=== PATIENT | male | born 1960 | race Caucasian/White ===

== ENCOUNTER 2019-05-05 08:03 | Emergency (ER) | payer OTHER ==
[~2019-05-05] VITALS: Ht 170.2 cm; Wt 99.8 kg
--- OUTSIDE RECORDS SUMMARY | 2019-05-05 08:06 | XMS REPORT ---
Author Author [facility] Address Unknown Phone Unavailable Care Team Providers Care Gas Line Servicer Name Role Phone ARIANNA, TIMBETTY Unavailable Unavailable KALPANA OLIVA Unavailable Unavailable Problems This patient has no known problems. Allergies, Adverse Reactions, Alerts This patient has no known allergies or adverse reactions. Medications This patient has no known medications. Results Test Description Test Time Test Comments Text Results Atomic Results Result Comments TISSUE EXAM 2017-10-11 10:11:00 Surgical Pathology Report Case: [id number] Authorizing Provider: Marcial De Los Santos Collected: 10/08/2017 1039 Ord ering Location: [address] Received: 10/09/2017 0852 Service Pathologist: Ximena Acevedo MD Specimen: Biopsy, Terminal Ileum, erythema SMALL INTESTINE, TERMINAL ILEUM, BIOPSY: - SMALL INTESTINAL MUCOSA WITH FOCAL MUCOSAL EROSION, OTHERWISE NO SIGNIFICANT PATHOLOGIC ALTERATION Signing Pathologist Direct Phone Line: [phone] signed by Ximena Acevedo MD on 10/11/2017 at 10:11 [id number] mass Terminal ileum erythema biopsy Received in formalin labeled "biopsy, terminal ileum", description "erythema" are three fragments measuring 0.6 x 0.5 x 0.1 cm in aggregate. The specimen is entirely submitted in A1. DB/ew Performed. POCT-GLUCOSE METER 2017-10-08 11:23:00 POC-GLUCOSE METER (BEAKER) (test yljh=4759) 135 mg/dL 70-110 TESTED AT [place] [id number] [facility] [address] POCT-GLUCOSE [id number] 05:32:00* Test Item Value Reference Range Comments POC-GLUCOSE METER (BEAKER) (test tncg=9685) 118 mg/dL 70-110 TESTED AT [address] [address] POCT-GLUCOSE [id number] 23:01:00* Test Item Value Reference Range Comments POC-GLUCOSE METER (BEAKER) (test cckl=2077) 116 mg/dL 70-110 TESTED AT [address] [address] POCT-GLUCOSE [id number] 17:48:00* Test Item Value Reference Range Comments POC-GLUCOSE METER (BEAKER) (test mvow=4506) 146 mg/dL 70-110 TESTED AT [address] [address] POCT-GLUCOSE [id number] 12:29:00* Test Item Value Reference Range Comments POC-GLUCOSE METER (BEAKER) (test ursf=1083) 152 mg/dL 70-110 TESTED AT [address] [address] POCT-GLUCOSE [id number] 08:01:00* Test Item Value Reference Range Comments POC-GLUCOSE METER (BEAKER) (test mkvg=7700) 171 mg/dL 70-110 TESTED AT [address] [address] POCT-GLUCOSE [id number] 22:12:00* Test Item Value Reference Range Comments POC-GLUCOSE METER (BEAKER) (test dypm=0002) 264 mg/dL 70-110 TESTED AT [address] [address] POCT-GLUCOSE [id number] 18:01:00* Test Item Value Reference Range Comments POC-GLUCOSE METER (BEAKER) (test uobu=9571) 153 mg/dL 70-110 TESTED AT [address] [address] POCT-GLUCOSE [id number] 12:26:00* Test Item Value Reference Range Comments POC-GLUCOSE METER (BEAKER) (test uljb=3575) 311 mg/dL 70-110 TESTED AT [address] [address] POCT-GLUCOSE [id number] 09:02:00* Test Item Value Reference Range Comments POC-GLUCOSE METER (BEAKER) (test nuoi=8380) 129 mg/dL 70-110 TESTED AT [address] [address] [id number] 04:44:00* Test Item Value Reference Range Comments PHOSPHORUS (BEAKER) (test zxln=279) 4.7 mg/dL 2.3-4.7 [id number] 04:44:00* Test Item Value Reference Range Comments MAGNESIUM (BEAKER) (test jsaf=245) 1.9 mg/dL 1.6-2.6 BASIC METABOLIC [id number] 04:44:00* Test Item Value Reference Range Comments SODIUM (BEAKER) (test wota=199) 141 meq/L 136-145 POTASSIUM (BEAKER) (test dayj=865) 3.6 meq/L 3.5-5.1 CHLORIDE (BEAKER) (test ithy=581) 104 meq/L 98-107 CO2 (BEAKER) (test jvid=401) 26 meq/L 22-29 BLOOD UREA NITROGEN (BEAKER) (test tmoc=880) 10 mg/dL 7-21 CREATININE (BEAKER) (test gjbo=740) 0.79 mg/dL 0.57-1.25 GLUCOSE RANDOM (BEAKER) (test qncs=327) 124 mg/dL 70-105 CALCIUM (BEAKER) (test trrv=480) 9.4 mg/dL 8.4-10.2 EGFR (BEAKER) (test xlwf=2885) 101 mL/min/1.73 sq m ESTIMATED GFR IS NOT ACCURATE CREATININE CLEARANCE IN PREDICTING GLOMERULAR FILTRATION RATE. ESTIMATED GFR IS NOT APPLICABLE FOR DIALYSIS PATIENTS. HEPATIC FUNCTION [id number] 04:44:00* Test Item Value Reference Range Comments TOTAL PROTEIN (BEAKER) (test opcc=751) 6.6 gm/dL 6.0-8.3 ALBUMIN (BEAKER) (test nzag=5608) 3.5 g/dL 3.5-5.0 BILIRUBIN TOTAL (BEAKER) (test dtxi=038) 0.7 mg/dL 0.2-1.2 BILIRUBIN DIRECT (BEAKER) (test xwgf=229) 0.3 mg/dL 0.1-0.5 ALKALINE PHOSPHATASE (BEAKER) (test wtws=243) 50 U/L 40-150 AST (SGOT) (BEAKER) (test taoe=697) 16 U/L 5-34 ALT (SGPT) (BEAKER) (test rkag=260) 19 U/L 6-55 CBC W/PLT COUNT & AUTO [id number] 04:06:00* Test Item Value Reference Range Comments WHITE BLOOD CELL COUNT (BEAKER) (test clql=149) 6.1 K/ L 3.5-10.5 RED BLOOD CELL COUNT (BEAKER) (test pate=849) 4.11 M/ L 4.63-6.08 HEMOGLOBIN (BEAKER) (test vlnl=744) 11.7 GM/DL 13.7-17.5 HEMATOCRIT (BEAKER) (test fhny=299) 34.8 % 40.1-51.0 MEAN CORPUSCULAR VOLUME (BEAKER) (test fkco=055) 84.7 fL 79.0-92.2 MEAN CORPUSCULAR HEMOGLOBIN (BEAKER) (test xrsm=536) 28.5 pg 25.7-32.2 MEAN CORPUSCULAR HEMOGLOBIN CONC (BEAKER) (test thsv=755) 33.6 GM/DL 32.3-36.5 RED CELL DISTRIBUTION WIDTH (BEAKER) (test xwni=487) 12.6 % 11.6-14.4 PLATELET COUNT (BEAKER) (test dgsd=194) 242 K/CU MM 150-450 MEAN PLATELET VOLUME (BEAKER) (test mqvc=602) 9.8 fL 9.4-12.4 NUCLEATED RED BLOOD CELLS (BEAKER) (test trri=633) 0 /100 WBC 0-0 NEUTROPHILS RELATIVE PERCENT (BEAKER) (test uubh=321) 54 % LYMPHOCYTES RELATIVE PERCENT (BEAKER) (test dqkv=063) 28 % MONOCYTES RELATIVE PERCENT (BEAKER) (test ehed=111) 9 % EOSINOPHILS RELATIVE PERCENT (BEAKER) (test nvqb=615) 8 % BASOPHILS RELATIVE PERCENT (BEAKER) (test ymgq=704) 1 % NEUTROPHILS ABSOLUTE COUNT (BEAKER) (test ehcu=957) 3.32 K/ L 1.78-5.38 LYMPHOCYTES ABSOLUTE COUNT (BEAKER) (test vomw=332) 1.73 K/ L 1.32-3.57 MONOCYTES ABSOLUTE COUNT (BEAKER) (test avsn=039) 0.57 K/ L 0.30-0.82 EOSINOPHILS ABSOLUTE COUNT (BEAKER) (test ohbs=418) 0.47 K/ L 0.04-0.54 BASOPHILS ABSOLUTE COUNT (BEAKER) (test zatz=135) 0.04 K/ L 0.01-0.08 IMMATURE GRANULOCYTES-RELATIVE PERCENT (BEAKER) (test hgvu=0965) 0 % 0-1 POCT-GLUCOSE [id number] 21:46:00* Test Item Value Reference Range Comments POC-GLUCOSE METER (BEAKER) (test wixt=9971) 212 mg/dL 70-[address] [facility] [address] [facility] [address] POCT-GLUCOSE [id number] 17:09:00* Test Item Value Reference Range Comments POC-GLUCOSE METER (BEAKER) (test pfkc=8414) 128 mg/dL 70-110 TESTED AT [address] [address] RAD, ABDOMEN/KUB, 1 VIEW [id number] 15:49:00Reason for exam:->assess abdominal distentionShould this be performed at the bedside?->YesFINAL REPORT Abdomen two views supine 10/05/2017 3:48 PM CLINICAL INDICATION: assess abdominal distention COMPARISON: None available IMPRESSION: There is no radiographic evidence for bowel obstruction. There is no high-grade ileus or colonic fecal burden. No abnormal calcifications are seen in the region of the gallbladder or kidneys. There are postsurgical changes in the right lower quadrant. The lung bases are well aerated. There are no acute-appearing skeletal abnormalities. Signed: Ramone Oneil Verified Date/Time: 10/05/2017 15:49:36 Reading Location: [address] Consult Reading Room -GLUCOSE METER 2017-10-05 11:28:00* Test Item Value Reference Range Comments POC-GLUCOSE METER (BEAKER) (test nvot=8526) 119 mg/dL 70-110 TESTED AT [place] [id number] [facility] [address] POCT-GLUCOSE [id number] 07:48:00* Test Item Value Reference Range Comments POC-GLUCOSE METER (BEAKER) (test tqgu=1914) 103 mg/dL 70-110 TESTED AT [address] [address] [id number] 06:40:00* Test Item Value Reference Range Comments PHOSPHORUS (BEAKER) (test mtxd=056) 3.3 mg/dL 2.3-4.7 [id number] 06:40:00* Test Item Value Reference Range Comments MAGNESIUM (BEAKER) (test tlqg=650) 1.9 mg/dL 1.6-2.6 BASIC METABOLIC [id number] 06:40:00* Test Item Value Reference Range Comments SODIUM (BEAKER) (test tqgg=697) 138 meq/L 136-145 POTASSIUM (BEAKER) (test oidt=592) 3.4 meq/L 3.5-5.1 CHLORIDE (BEAKER) (test bxge=102) 105 meq/L 98-107 CO2 (BEAKER) (test rznv=324) 26 meq/L 22-29 BLOOD UREA NITROGEN (BEAKER) (test xxql=417) 8 mg/dL 7-21 CREATININE (BEAKER) (test zizo=918) 0.73 mg/dL 0.57-1.25 GLUCOSE RANDOM (BEAKER) (test tfhn=949) 111 mg/dL 70-105 CALCIUM (BEAKER) (test ornf=429) 9.3 mg/dL 8.4-10.2 EGFR (BEAKER) (test miuk=4764) 110 mL/min/1.73 sq m ESTIMATED GFR IS NOT ACCURATE CREATININE CLEARANCE IN PREDICTING GLOMERULAR FILTRATION RATE. ESTIMATED GFR IS NOT APPLICABLE FOR DIALYSIS PATIENTS. HEPATIC FUNCTION [id number] 06:40:00* Test Item Value Reference Range Comments TOTAL PROTEIN (BEAKER) (test wkpn=733) 6.0 gm/dL 6.0-8.3 ALBUMIN (BEAKER) (test mirr=2189) 3.6 g/dL 3.5-5.0 BILIRUBIN TOTAL (BEAKER) (test kpnh=609) 0.9 mg/dL 0.2-1.2 BILIRUBIN DIRECT (BEAKER) (test osai=956) 0.4 mg/dL 0.1-0.5 ALKALINE PHOSPHATASE (BEAKER) (test mhnl=503) 46 U/L 40-150 AST (SGOT) (BEAKER) (test omso=086) 11 U/L 5-34 ALT (SGPT) (BEAKER) (test xbrg=504) 14 U/L 6-55 CBC W/PLT COUNT & AUTO [id number] 06:07:00* Test Item Value Reference Range Comments WHITE BLOOD CELL COUNT (BEAKER) (test qiov=359) 7.5 K/ L 3.5-10.5 RED BLOOD CELL COUNT (BEAKER) (test lghb=618) 4.05 M/ L 4.63-6.08 HEMOGLOBIN (BEAKER) (test qfmh=297) 11.3 GM/DL 13.7-17.5 HEMATOCRIT (BEAKER) (test yaae=040) 34.7 % 40.1-51.0 MEAN CORPUSCULAR VOLUME (BEAKER) (test jziy=592) 85.7 fL 79.0-92.2 MEAN CORPUSCULAR HEMOGLOBIN (BEAKER) (test zumg=508) 27.9 pg 25.7-32.2 MEAN CORPUSCULAR HEMOGLOBIN CONC (BEAKER) (test gdij=943) 32.6 GM/DL 32.3-36.5 RED CELL DISTRIBUTION WIDTH (BEAKER) (test zfzy=348) 12.9 % 11.6-14.4 PLATELET COUNT (BEAKER) (test catb=846) 234 K/CU MM 150-450 MEAN PLATELET VOLUME (BEAKER) (test tmac=014) 10.2 fL 9.4-12.4 NUCLEATED RED BLOOD CELLS (BEAKER) (test tdun=534) 0 /100 WBC 0-0 NEUTROPHILS RELATIVE PERCENT (BEAKER) (test eggs=064) 56 % LYMPHOCYTES RELATIVE PERCENT (BEAKER) (test dohc=830) 27 % MONOCYTES RELATIVE PERCENT (BEAKER) (test qdcn=334) 10 % EOSINOPHILS RELATIVE PERCENT (BEAKER) (test oukk=806) 7 % BASOPHILS RELATIVE PERCENT (BEAKER) (test papy=609) 1 % NEUTROPHILS ABSOLUTE COUNT (BEAKER) (test wwas=569) 4.13 K/ L 1.78-5.38 LYMPHOCYTES ABSOLUTE COUNT (BEAKER) (test lzym=976) 1.98 K/ L 1.32-3.57 MONOCYTES ABSOLUTE COUNT (BEAKER) (test stsg=775) 0.72 K/ L 0.30-0.82 EOSINOPHILS ABSOLUTE COUNT (BEAKER) (test zyhp=501) 0.54 K/ L 0.04-0.54 BASOPHILS ABSOLUTE COUNT (BEAKER) (test vlby=029) 0.04 K/ L 0.01-0.08 IMMATURE GRANULOCYTES-RELATIVE PERCENT (BEAKER) (test tnfy=7564) 1 % 0-1 POCT-GLUCOSE [id number] 22:20:00* Test Item Value Reference Range Comments POC-GLUCOSE METER (BEAKER) (test hvgu=2913) 127 mg/dL 70-110 TESTED AT [facility] [address] [facility] [address] POCT-GLUCOSE [id number] 17:22:00* Test Item Value Reference Range Comments POC-GLUCOSE METER (BEAKER) (test ccfa=8603) 238 mg/dL 70-110 TESTED AT [address] [address] B-TYPE NATRIURETIC FACTOR (BNP)2017-10-04 15:06:00* Test Item Value Reference Range Comments B-TYPE NATRIURETIC PEPTIDE (BEAKER) (test bklc=767) 52 pg/mL 0-100 POCT-GLUCOSE [id number] 11:44:00* Test Item Value Reference Range Comments POC-GLUCOSE METER (BEAKER) (test guul=9777) 225 mg/dL 70-110 TESTED AT [address] [address] HEPATIC FUNCTION [id number] 10:30:00* Test Item Value Reference Range Comments TOTAL PROTEIN (BEAKER) (test ofxm=370) 6.5 gm/dL 6.0-8.3 ALBUMIN (BEAKER) (test tobo=6684) 3.7 g/dL 3.5-5.0 BILIRUBIN TOTAL (BEAKER) (test beyy=860) 1.0 mg/dL 0.2-1.2 BILIRUBIN DIRECT (BEAKER) (test pphx=002) 0.5 mg/dL 0.1-0.5 ALKALINE PHOSPHATASE (BEAKER) (test flpy=839) 41 U/L 40-150 AST (SGOT) (BEAKER) (test tdqz=705) 11 U/L 5-34 ALT (SGPT) (BEAKER) (test wjrs=581) 13 U/L 6-55 [id number] 06:30:00* Test Item Value Reference Range Comments PHOSPHORUS (BEAKER) (test psia=127) 3.0 mg/dL 2.3-4.7 [id number] 06:30:00* Test Item Value Reference Range Comments MAGNESIUM (BEAKER) (test rava=773) 2.4 mg/dL 1.6-2.6 BASIC METABOLIC [id number] 06:30:00* Test Item Value Reference Range Comments SODIUM (BEAKER) (test cabr=284) 142 meq/L 136-145 POTASSIUM (BEAKER) (test qxwk=093) 4.3 meq/L 3.5-5.1 CHLORIDE (BEAKER) (test viut=998) 106 meq/L 98-107 CO2 (BEAKER) (test ttjw=155) 27 meq/L 22-29 BLOOD UREA NITROGEN (BEAKER) (test gzge=472) 12 mg/dL 7-21 CREATININE (BEAKER) (test tbfc=295) 0.84 mg/dL 0.57-1.25 GLUCOSE RANDOM (BEAKER) (test bmrr=638) 178 mg/dL 70-105 CALCIUM (BEAKER) (test cija=261) 8.8 mg/dL 8.4-10.2 EGFR (BEAKER) (test vzap=3155) 94 mL/min/1.73 sq m ESTIMATED GFR IS NOT ACCURATE CREATININE CLEARANCE IN PREDICTING GLOMERULAR FILTRATION RATE. ESTIMATED GFR IS NOT APPLICABLE FOR DIALYSIS PATIENTS. LIPID [id number] 06:30:00* Test Item Value Reference Range Comments TRIGLYCERIDES (BEAKER) (test vlpj=489) 105 mg/dL CHOLESTEROL (BEAKER) (test acqh=315) 90 mg/dL HDL CHOLESTEROL (BEAKER) (test ywgl=354) 37 mg/dL LDL CHOLESTEROL CALCULATED (BEAKER) (test gkex=114) 32 mg/dL Triglyceride Reference Range: Low Risk <150 Borderline 150-199 High Risk 200-499 Very High Risk >=500Cholesterol Reference Range: Low Risk <200 Borderline 200-239 High Risk >240HDL Cholesterol Reference Range: Low Risk >=60 High Risk <40LDL Cholesterol Reference Range: Optimal <100 Near Optimal 100-129 Borderline 130-159 High 160-189 Very High >=190 AMYLASE 2017-10-04 06:30:00* Test Item Value Reference Range Comments AMYLASE (BEAKER) (test gbiq=462) 142 U/L 25-125 [id number] 06:30:00* Test Item Value Reference Range Comments LIPASE (BEAKER) (test gerp=869) 462 U/L 8-78 POCT-GLUCOSE [id number] 05:56:00* Test Item Value Reference Range Comments POC-GLUCOSE METER (BEAKER) (test kceb=1781) 191 mg/dL 70-[address] [facility] [address] [facility] [address] CBC W/PLT COUNT & AUTO [id number] 05:55:00* Test Item Value Reference Range Comments WHITE BLOOD CELL COUNT (BEAKER) (test ansr=775) 9.0 K/ L 3.5-10.5 RED BLOOD CELL COUNT (BEAKER) (test seyo=000) 4.13 M/ L 4.63-6.08 HEMOGLOBIN (BEAKER) (test ggaj=415) 11.5 GM/DL 13.7-17.5 HEMATOCRIT (BEAKER) (test gxef=918) 36.3 % 40.1-51.0 MEAN CORPUSCULAR VOLUME (BEAKER) (test ofoa=286) 87.9 fL 79.0-92.2 MEAN CORPUSCULAR HEMOGLOBIN (BEAKER) (test qadk=472) 27.8 pg 25.7-32.2 MEAN CORPUSCULAR HEMOGLOBIN CONC (BEAKER) (test cjdb=655) 31.7 GM/DL 32.3-36.5 RED CELL DISTRIBUTION WIDTH (BEAKER) (test sqnc=915) 13.3 % 11.6-14.4 PLATELET COUNT (BEAKER) (test oans=132) 241 K/CU MM 150-450 MEAN PLATELET VOLUME (BEAKER) (test nbku=737) 10.3 fL 9.4-12.4 NUCLEATED RED BLOOD CELLS (BEAKER) (test rojr=554) 0 /100 WBC 0-0 NEUTROPHILS RELATIVE PERCENT (BEAKER) (test abxq=285) 63 % LYMPHOCYTES RELATIVE PERCENT (BEAKER) (test gyxv=006) 21 % MONOCYTES RELATIVE PERCENT (BEAKER) (test xthv=629) 12 % EOSINOPHILS RELATIVE PERCENT (BEAKER) (test nnlm=051) 5 % BASOPHILS RELATIVE PERCENT (BEAKER) (test xwaf=825) 0 % NEUTROPHILS ABSOLUTE COUNT (BEAKER) (test mhgy=739) 5.61 K/ L 1.78-5.38 LYMPHOCYTES ABSOLUTE COUNT (BEAKER) (test nhox=791) 1.84 K/ L 1.32-3.57 MONOCYTES ABSOLUTE COUNT (BEAKER) (test itqz=955) 1.04 K/ L 0.30-0.82 EOSINOPHILS ABSOLUTE COUNT (BEAKER) (test usag=213) 0.44 K/ L 0.04-0.54 BASOPHILS ABSOLUTE COUNT (BEAKER) (test arqo=489) 0.04 K/ L 0.01-0.08 IMMATURE GRANULOCYTES-RELATIVE PERCENT (BEAKER) (test mqqs=7183) 0 % 0-1 U/S, ABDOMINAL, [id number] 04:32:00Reason for exam:->pancreatitisFINAL REPORT Ultrasound of the Abdomen, complete Clinical History: pancreatitis Discussion: Sonographic evaluation of the abdomen was p erformed. There is no prior study for direct comparison. Liver: 17.4 cm in [facility] at the right midclavicular line. Increased echogenicity. No lesion is iden tified by ultrasound. Main portal vein diameter 1.1 cm and demonstrates hepatop etal flow. Biliary tree: Common duct 5 mm. No biliary ductal dilatation. Gallb ladder: No shadowing calculus/calculi. No wall thickening. No pericholecystic fluid. Negative sonographic Peters's sign. Pancreas: Partially obscured by bowel gas but the visualized portions of the head and body appear heterogeneous and edematous. Ascites: None seen Spleen: Normal size and echogenicity measuring 1 0.5 x 4.5 x 4.8 cm. Kidneys: Right kidney 13.1 x 5.4 x 5.9 cm with cortical th ickness of 1.6 cm. Left kidney 13.6 x 6.3 x 5.6 cm with cortical thickness of 1. 6 cm. Normal cortical echogenicity. No shadowing calculus, no hydronephrosis. IVC/Aorta: Segments partially seen. Unremarkable. Impression:Echogenic liver was recently parenchymal disease such as fatty infiltration.Partially obscured p ancreas. The visualized portions are heterogeneous and edematous which may be du e to reported pancreatitis.Sonographically normal gallbladder. No biliary ductal dictation. Signed: Monalisa Cohen MDReport Verified Date/Time: 10/04/2017 04:32 :34 Reading Location: [address] Transitional Reading Room Electronically s igned by: MONALISA COHEN MD on 10/04/2017 04:32 AM POCT-GLUCOSE METER 2017-10-03 22:56:00* Test Item Value Reference Range Comments POC-GLUCOSE METER (RAYNE) (test tyyx=1020) 182 mg/dL 70-[address] [facility] [address] [facility] [address] POCT-GLUCOSE [id number] 18:14:00* Test Item Value Reference Range Comments POC-GLUCOSE METER (BEAKER) (test nuvh=7145) 228 mg/dL 70-110 TESTED AT [address] [address] CARCINOEMBRYONIC ANTIGEN (CEA)2017-10-03 16:43:00* Test Item Value Reference Range Comments CARCINOEMBRYONIC ANTIGEN (BEAKER) (test aedt=177) 2.4 ng/mL 0.0-5.0 [id number] 15:14:00* Test Item Value Reference Range Comments LIPASE (BEAKER) (test iron=545) > U/L 8-78 HEMOGLOBIN [id number] 14:29:00* Test Item Value Reference Range Comments HEMOGLOBIN A1C (BEAKER) (test vabl=967) 10.3 % 4.3-6.1 [id number] 13:35:00* Test Item Value Reference Range Comments AMYLASE (BEAKER) (test ykfk=882) 441 U/L 25-125 POCT-GLUCOSE [id number] 12:56:00* Test Item Value Reference Range Comments POC-GLUCOSE METER (BEAKER) (test sblq=5802) 238 mg/dL 70-110 TESTED AT [address] [address] POCT-GLUCOSE [id number] 13:03:00* Test Item Value Reference Range Comments POC-GLUCOSE METER (BEAKER) (test fwex=9013) 317 mg/dL 70-110 Notified KHUSHI WAGGONER/TESTED AT [address] [address] POCT-GLUCOSE [id number] 09:59:00* Test Item Value Reference Range Comments POC-GLUCOSE METER (BEAKER) (test pmom=0924) 230 mg/dL 70-110 TESTED AT [address] [address] COMPREHENSIVE METABOLIC [id number] 03:51:00* Test Item Value Reference Range Comments TOTAL PROTEIN (BEAKER) (test rrfl=498) 7.6 gm/dL 6.0-8.3 Specimen slightly hemolyzed ALBUMIN (BEAKER) (test fgcr=2817) 3.7 g/dL 3.5-5.0 Specimen slightly hemolyzed ALKALINE PHOSPHATASE (BEAKER) (test jqfw=809) 45 U/L 40-150 BILIRUBIN TOTAL (BEAKER) (test oatu=559) 0.3 mg/dL 0.2-1.2 Specimen slightly hemolyzed SODIUM (BEAKER) (test iugm=160) 134 meq/L 136-145 POTASSIUM (BEAKER) (test aqwz=569) 3.4 meq/L 3.5-5.1 Specimen slightly hemolyzed CHLORIDE (BEAKER) (test zrhh=385) 100 meq/L 98-107 CO2 (BEAKER) (test mnir=151) 20 meq/L 22-29 BLOOD UREA NITROGEN (BEAKER) (test mjod=959) 15 mg/dL 7-21 CREATININE (BEAKER) (test tlvl=704) 0.98 mg/dL 0.57-1.25 Specimen slightly hemolyzed GLUCOSE RANDOM (BEAKER) (test usap=381) 318 mg/dL 70-105 CALCIUM (BEAKER) (test pxbe=280) 9.7 mg/dL 8.4-10.2 AST (SGOT) (BEAKER) (test zrzh=590) 21 U/L 5-34 Specimen slightly hemolyzed ALT (SGPT) (BEAKER) (test xdom=145) 32 U/L 6-55 Specimen slightly hemolyzed EGFR (BEAKER) (test gwwf=0665) 79 mL/min/1.73 sq m ESTIMATED GFR IS NOT ACCURATE CREATININE CLEARANCE IN PREDICTING GLOMERULAR FILTRATION RATE. ESTIMATED GFR IS NOT APPLICABLE FOR DIALYSIS PATIENTS. Specimen markedly lipemicCBC (HEMOGRAM ONLY)2017-04-07 03:26:00* Test Item Value Reference Range Comments WHITE BLOOD CELL COUNT (BEAKER) (test tuyx=758) 7.1 K/ L 3.5-10.5 RED BLOOD CELL COUNT (BEAKER) (test fuxr=265) 4.69 M/ L 4.63-6.08 HEMOGLOBIN (BEAKER) (test swlu=653) 13.8 GM/DL 13.7-17.5 HEMATOCRIT (BEAKER) (test faxt=536) 39.2 % 40.1-51.0 MEAN CORPUSCULAR VOLUME (BEAKER) (test rarz=653) 83.6 fL 79.0-92.2 MEAN CORPUSCULAR HEMOGLOBIN (BEAKER) (test yfie=062) 29.4 pg 25.7-32.2 MEAN CORPUSCULAR HEMOGLOBIN CONC (BEAKER) (test vrgd=542) 35.2 GM/DL 32.3-36.5 RED CELL DISTRIBUTION WIDTH (BEAKER) (test niyy=801) 12.8 % 11.6-14.4 PLATELET COUNT (BEAKER) (test vnio=373) 263 K/CU MM 150-450 MEAN PLATELET VOLUME (BEAKER) (test rxkv=529) 10.0 fL 9.4-12.4 NUCLEATED RED BLOOD CELLS (BEAKER) (test ongx=646) 0 /100 WBC 0-0 POCT-GLUCOSE [id number] 21:22:00* Test Item Value Reference Range Comments POC-GLUCOSE METER (BEAKER) (test xnbp=6502) 259 mg/dL 70-110 TESTED AT [place] [id number] 19:27:00* Test Item Value Reference Range Comments ACTIVATED CLOTTING TIME (BEAKER) (test gzxl=434) 279 sec TESTED AT [place] [id number] 19:05:00* Test Item Value Reference Range Comments ACTIVATED CLOTTING TIME (BEAKER) (test uuno=817) 246 sec TESTED AT [address] [address] POCT-GLUCOSE [id number] 12:55:00* Test Item Value Reference Range Comments POC-GLUCOSE METER (BEAKER) (test kpfb=5652) 208 mg/dL 70-110 TESTED AT [address] [address] POCT-GLUCOSE [id number] 08:05:00* Test Item Value Reference Range Comments POC-GLUCOSE METER (BEAKER) (test nxsd=5478) 245 mg/dL 70-110 TESTED AT [address] [address] COMPREHENSIVE METABOLIC [id number] 07:20:00* Test Item Value Reference Range Comments TOTAL PROTEIN (BEAKER) (test ousu=844) 7.5 gm/dL 6.0-8.3 Specimen slightly hemolyzed ALBUMIN (BEAKER) (test vmus=7650) 3.8 g/dL 3.5-5.0 Specimen slightly hemolyzed ALKALINE PHOSPHATASE (BEAKER) (test ably=400) 43 U/L 40-150 BILIRUBIN TOTAL (BEAKER) (test oncl=200) 0.5 mg/dL 0.2-1.2 Specimen slightly hemolyzed SODIUM (BEAKER) (test wyqf=086) 137 meq/L 136-145 POTASSIUM (BEAKER) (test rifs=424) 3.3 meq/L 3.5-5.1 Specimen slightly hemolyzed CHLORIDE (BEAKER) (test imyt=161) 101 meq/L 98-107 CO2 (BEAKER) (test cpkc=189) 18 meq/L 22-29 BLOOD UREA NITROGEN (BEAKER) (test yfmx=869) 16 mg/dL 7-21 CREATININE (BEAKER) (test isip=243) 0.89 mg/dL 0.57-1.25 Specimen slightly hemolyzed GLUCOSE RANDOM (BEAKER) (test fynr=176) 248 mg/dL 70-105 CALCIUM (BEAKER) (test axkt=746) 9.2 mg/dL 8.4-10.2 AST (SGOT) (BEAKER) (test zzbd=709) 24 U/L 5-34 Specimen slightly hemolyzed ALT (SGPT) (BEAKER) (test wdki=491) 30 U/L 6-55 Specimen slightly hemolyzed EGFR (BEAKER) (test ktvs=0117) 88 mL/min/1.73 sq m ESTIMATED GFR IS NOT ACCURATE CREATININE CLEARANCE IN PREDICTING GLOMERULAR FILTRATION RATE. ESTIMATED GFR IS NOT APPLICABLE FOR DIALYSIS PATIENTS. Specimen moderately [id number] 07:05:00* Test Item Value Reference Range Comments PARTIAL THROMBOPLASTIN TIME (BEAKER) (test pgts=343) 56.4 seconds 22.5-36.0 CBC (HEMOGRAM ONLY)2017-04-06 06:56:00* Test Item Value Reference Range Comments WHITE BLOOD CELL COUNT (BEAKER) (test hsfe=662) 8.0 K/ L 3.5-10.5 RED BLOOD CELL COUNT (BEAKER) (test hcdz=363) 4.82 M/ L 4.63-6.08 HEMOGLOBIN (BEAKER) (test wodm=557) 14.2 GM/DL 13.7-17.5 HEMATOCRIT (BEAKER) (test hgbs=741) 40.5 % 40.1-51.0 MEAN CORPUSCULAR VOLUME (BEAKER) (test fguk=489) 84.0 fL 79.0-92.2 MEAN CORPUSCULAR HEMOGLOBIN (BEAKER) (test oyng=341) 29.5 pg 25.7-32.2 MEAN CORPUSCULAR HEMOGLOBIN CONC (BEAKER) (test kzxo=354) 35.1 GM/DL 32.3-36.5 RED CELL DISTRIBUTION WIDTH (BEAKER) (test yfpo=086) 12.8 % 11.6-14.4 PLATELET COUNT (BEAKER) (test xzjh=034) 253 K/CU MM 150-450 MEAN PLATELET VOLUME (BEAKER) (test sgbz=762) 9.8 fL 9.4-12.4 NUCLEATED RED BLOOD CELLS (BEAKER) (test nhps=550) 0 /100 WBC 0-0 [id number] 01:00:00* Test Item Value Reference Range Comments PARTIAL THROMBOPLASTIN TIME (BEAKER) (test jzer=021) 46.6 seconds 22.5-36.0 TROPONIN [id number] 00:45:00* Test Item Value Reference Range Comments TROPONIN I (BEAKER) (test xsjv=436) 1.54 ng/mL 0.00-0.03 Troponin I (TnI) levels must be interpreted in the context of the presenting sym ptoms and the clinical findings. Elevated TnI levels indicate myocardial damage, but are not specific for ischemic heart disease. Elevated TnI levels are seen in patients with other cardiac conditions (including myocarditis and congestive h eart failure), and slight TnI elevations occur in patients with other conditions , including sepsis, renal failure, acidosis, acute neurological disease, and per sistent tachyarrhythmia.CREATINE KINASE (CK), TOTAL AND [id number] 00:42:00* Test Item Value Reference Range Comments CREATINE KINASE TOTAL (BEAKER) (test gsiw=428) 173 U/L 29-200 CREATINE KINASE-MB (BEAKER) (test flmi=080) 9.4 ng/mL 0.0-6.6 CREATINE KINASE-MB INDEX (BEAKER) (test bjoz=628) 5.4 % CK-MB Reference Range:<6.7 Normal6.7-10.0 Borderline>10.0 Abnormal POCT-GLUCOSE [id number] 22:04:00* Test Item Value Reference Range Comments POC-GLUCOSE METER (BEAKER) (test alwg=0301) 266 mg/dL 70-110 TESTED AT [address] [address] TROPONIN [id number] 18:34:00* Test Item Value Reference Range Comments TROPONIN I (BEAKER) (test gynd=523) 2.06 ng/mL 0.00-0.03 Troponin I (TnI) levels must be interpreted in the context of the presenting sym ptoms and the clinical findings. Elevated TnI levels indicate myocardial damage, but are not specific for ischemic heart disease. Elevated TnI levels are seen in patients with other cardiac conditions (including myocarditis and congestive h eart failure), and slight TnI elevations occur in patients with other conditions , including sepsis, renal failure, acidosis, acute neurological disease, and per sistent tachyarrhythmia.CREATINE KINASE (CK), TOTAL AND [id number] 18:25:00* Test Item Value Reference Range Comments CREATINE KINASE TOTAL (BEAKER) (test ffbx=150) 215 U/L 29-200 CREATINE KINASE-MB (BEAKER) (test ombd=827) 15.6 ng/mL 0.0-6.6 CREATINE KINASE-MB INDEX (BEAKER) (test nwih=513) 7.3 % CK-MB Reference Range:<6.7 Normal6.7-10.0 Borderline>10.0 AbnormalAPTT 2017-04-05 17:57:00* Test Item Value Reference Range Comments PARTIAL THROMBOPLASTIN TIME (BEAKER) (test oisj=762) 44.1 seconds 22.5-36.0 POCT-GLUCOSE [id number] 17:46:00* Test Item Value Reference Range Comments POC-GLUCOSE METER (BEAKER) (test ccud=4038) 255 mg/dL 70-110 TESTED AT [address] [address] TSH/FREE T4 IF [id number] 13:59:00* Test Item Value Reference Range Comments THYROID STIMULATING HORMONE (BEAKER) (test ccdu=719) 0.94 uIU/mL 0.35-4.94 POCT-GLUCOSE [id number] 13:57:00* Test Item Value Reference Range Comments POC-GLUCOSE METER (BEAKER) (test irbw=8540) 195 mg/dL 70-110 TESTED AT [address] [address] HEMOGLOBIN [id number] 12:50:00* Test Item Value Reference Range Comments HEMOGLOBIN A1C (BEAKER) (test bsdk=918) 10.3 % 4.3-6.1 PROTHROMBIN TIME/[id number] 11:58:00* Test Item Value Reference Range Comments PROTIME (BEAKER) (test lmay=099) 12.5 seconds 11.7-14.7 INR (BEAKER) (test flgl=856) 0.9 <=5.9 RECOMMENDED COUMADIN/WARFARIN INR THERAPY RANGESSTANDARD DOSE: 2.0 - 3.0 Inclu zack: PROPHYLAXIS for venous thrombosis, systemic embolization; TREATMENT for betsy ous thrombosis and/or pulmonary embolus.HIGH RISK: Target INR is 2.5-3.5 for pat ients with mechanical heart valves.PT/[id number] 11:58:00* Test Item Value Reference Range Comments PROTIME (BEAKER) (test pjmg=123) 12.5 seconds 11.7-14.7 INR (BEAKER) (test udzt=202) 0.9 <=5.9 PARTIAL THROMBOPLASTIN TIME (BEAKER) (test qbkz=965) 32.9 seconds 22.5-36.0 RECOMMENDED COUMADIN/WARFARIN INR THERAPY RANGESSTANDARD DOSE: 2.0 - 3.0 Inclu zack: PROPHYLAXIS for venous thrombosis, systemic embolization; TREATMENT for betsy ous thrombosis and/or pulmonary embolus.HIGH RISK: Target INR is 2.5-3.5 for pat ients with mechanical heart valves.B-TYPE NATRIURETIC FACTOR (BNP)2017-04-05 11:57:00* Test Item Value Reference Range Comments B-TYPE NATRIURETIC PEPTIDE (DAWOODAKER) (test feff=825) 39 pg/mL 0-100 TROPONIN [id number] 11:53:00* Test Item Value Reference Range Comments TROPONIN I (BEAKER) (test lzjx=454) 1.88 ng/mL 0.00-0.03 Troponin I (TnI) levels must be interpreted in the context of the presenting sym ptoms and the clinical findings. Elevated TnI levels indicate myocardial damage, but are not specific for ischemic heart disease. Elevated TnI levels are seen in patients with other cardiac conditions (including myocarditis and congestive h eart failure), and slight TnI elevations occur in patients with other conditions , including sepsis, renal failure, acidosis, acute neurological disease, and per sistent tachyarrhythmia.CREATINE KINASE (CK), TOTAL AND [id number] 11:46:00* Test Item Value Reference Range Comments CREATINE KINASE TOTAL (BEAKER) (test zjqg=031) 222 U/L 29-200 CREATINE KINASE-MB (BEAKER) (test wbje=964) 18.5 ng/mL 0.0-6.6 CREATINE KINASE-MB INDEX (BEAKER) (test wczu=584) 8.3 % CK-MB Reference Range:<6.7 Normal6.7-10.0 Borderline>10.0 Abnormal LIPID [id number] 11:37:00* Test Item Value Reference Range Comments TRIGLYCERIDES (BEAKER) (test dqid=701) 271 mg/dL CHOLESTEROL (BEAKER) (test dbvk=311) 113 mg/dL HDL CHOLESTEROL (BEAKER) (test kjje=071) 33 mg/dL LDL CHOLESTEROL CALCULATED (BEAKER) (test zofx=822) 26 mg/dL Triglyceride Reference Range: Low Risk <150 Borderline 150-199 High Risk 200-499 Very High Risk >=500Cholesterol Reference Range: Low Risk <200 Borderline 200-239 High Risk >240HDL Cholesterol Reference Range: Low Risk >=60 High Risk <40LDL Cholesterol Reference Range: Optimal <100 Near Optimal 100-129 Borderline 130-159 High 160-189 Very High >=190 C- REACTIVE [id number] 11:37:00* Test Item Value Reference Range Comments C-REACTIVE PROTEIN (BEAKER) (test lajd=557) 0.10 mg/dL 0.00-0.50 TROPONIN [id number] 09:59:00* Test Item Value Reference Range Comments TROPONIN I (BEAKER) (test kgzf=638) 1.22 ng/mL 0.00-0.03 Troponin I (TnI) levels must be interpreted in the context of the presenting sym ptoms and the clinical findings. Elevated TnI levels indicate myocardial damage, but are not specific for ischemic heart disease. Elevated TnI levels are seen in patients with other cardiac conditions (including myocarditis and congestive h eart failure), and slight TnI elevations occur in patients with other conditions , including sepsis, renal failure, acidosis, acute neurological disease, and per sistent tachyarrhythmia.CREATINE KINASE (CK), TOTAL AND [id number] 09:43:00* Test Item Value Reference Range Comments CREATINE KINASE TOTAL (BEAKER) (test czmm=732) 206 U/L 29-200 CREATINE KINASE-MB (BEAKER) (test ukip=519) 14.9 ng/mL 0.0-6.6 CREATINE KINASE-MB INDEX (BEAKER) (test wbko=429) 7.2 % CK-MB Reference Range:<6.7 Normal6.7-10.0 Borderline>10.0 AbnormalB- TYPE NATRIURETIC FACTOR (BNP)2017-04-05 09:41:00* Test Item Value Reference Range Comments B-TYPE NATRIURETIC PEPTIDE (BEAKER) (test chzn=491) 26 pg/mL 0-100 RAD, CHEST, 1 VIEW, NON [id number] 09:39:00Reason for exam:->CHEST PAINReason for exam:->TACHYCARDIAShould this be performed at the bedside?->Yes FINAL REPORT Chest one view. Clinical history: CHEST FAISAL NTACHYCARDIA Comparison: No priors Discussion: A frontal chest is provided. The cardiac and mediastinal contours are normal allowing for portable technique. Th ere is no pneumothorax, fletcher pulmonary edema, consolidation or large pleural ef fusion. The bony structures demonstrate mild degenerative changes. Signed: Dayana Nayloreport Verified Date/Time: 04/05/2017 09:39:48 Reading Location: [facility] Radiology Reading Room C METABOLIC [id number] 09:37:00* Test Item Value Reference Range Comments SODIUM (BEAKER) (test sbed=685) 140 meq/L 136-145 POTASSIUM (BEAKER) (test nvgw=913) 3.9 meq/L 3.5-5.1 CHLORIDE (BEAKER) (test jzgv=041) 102 meq/L 98-107 CO2 (BEAKER) (test nksx=892) 27 meq/L 22-29 BLOOD UREA NITROGEN (BEAKER) (test nepe=682) 16 mg/dL 7-21 CREATININE (BEAKER) (test zhhz=833) 1.09 mg/dL 0.57-1.25 GLUCOSE RANDOM (BEAKER) (test pmdk=193) 228 mg/dL 70-105 CALCIUM (BEAKER) (test fnza=494) 9.5 mg/dL 8.4-10.2 EGFR (BEAKER) (test ecwd=3411) 69 mL/min/1.73 sq m ESTIMATED GFR IS NOT ACCURATE CREATININE CLEARANCE IN PREDICTING GLOMERULAR FILTRATION RATE. ESTIMATED GFR IS NOT APPLICABLE FOR DIALYSIS PATIENTS. CBC W/PLT COUNT & AUTO [id number] 09:20:00* Test Item Value Reference Range Comments WHITE BLOOD CELL COUNT (BEAKER) (test kmgs=938) 10.8 K/ L 3.5-10.5 RED BLOOD CELL COUNT (BEAKER) (test wrgf=724) 5.22 M/ L 4.63-6.08 HEMOGLOBIN (BEAKER) (test uaki=379) 15.1 GM/DL 13.7-17.5 HEMATOCRIT (BEAKER) (test zvvz=675) 44.3 % 40.1-51.0 MEAN CORPUSCULAR VOLUME (BEAKER) (test ekkg=960) 84.9 fL 79.0-92.2 MEAN CORPUSCULAR HEMOGLOBIN (BEAKER) (test vagt=451) 28.9 pg 25.7-32.2 MEAN CORPUSCULAR HEMOGLOBIN CONC (BEAKER) (test opid=475) 34.1 GM/DL 32.3-36.5 RED CELL DISTRIBUTION WIDTH (BEAKER) (test srqd=369) 12.9 % 11.6-14.4 PLATELET COUNT (BEAKER) (test bgbn=130) 276 K/CU MM 150-450 MEAN PLATELET VOLUME (BEAKER) (test ysrb=011) 10.3 fL 9.4-12.4 NUCLEATED RED BLOOD CELLS (BEAKER) (test mgyo=520) 0 /100 WBC 0-0 NEUTROPHILS RELATIVE PERCENT (BEAKER) (test amaa=388) 56 % LYMPHOCYTES RELATIVE PERCENT (BEAKER) (test kytl=262) 31 % MONOCYTES RELATIVE PERCENT (BEAKER) (test yagj=521) 9 % EOSINOPHILS RELATIVE PERCENT (BEAKER) (test ocza=830) 2 % BASOPHILS RELATIVE PERCENT (BEAKER) (test yaca=890) 1 % NEUTROPHILS ABSOLUTE COUNT (BEAKER) (test llnp=959) 6.11 K/ L 1.78-5.38 LYMPHOCYTES ABSOLUTE COUNT (BEAKER) (test eqio=403) 3.38 K/ L 1.32-3.57 MONOCYTES ABSOLUTE COUNT (BEAKER) (test oxas=566) 0.97 K/ L 0.30-0.82 EOSINOPHILS ABSOLUTE COUNT (BEAKER) (test sjwv=068) 0.26 K/ L 0.04-0.54 BASOPHILS ABSOLUTE COUNT (BEAKER) (test wuvf=000) 0.07 K/ L 0.01-0.08 IMMATURE GRANULOCYTES-RELATIVE PERCENT (BEAKER) (test kdfp=8356) 0 % 0-1
--- NOTE | 2019-05-05 08:15 | NUR ---
PT SPONTANEOUSLY CONVERTED TO SINUS RHYTHM; PT WITH NO COMPLAINTS AT THIS TIME; NO MEDICATIONS GIVEN
[2019-05-05] MEDS ORDERED: DILTIAZEM HCL VIAL 0 ML ONE (08:18)
[2019-05-05] MEDS ORDERED: ADENOSINE 6MG/2ML 0 ML ONE (08:18)
[2019-05-05] MEDS ORDERED: SODIUM CHLORIDE 0.9% 1000ML 2,000 ML ONE (08:19)
[2019-05-05] MEDS ORDERED: POTASSIUM CHLORIDE 20 MEQ TAB CR PO STA (09:30)
[2019-05-05] MEDS ORDERED: POTASSIUM CHLORIDE 20 MEQ TAB CR PO ONE (09:37)
[2019-05-05 10:56] VITALS: BP 127/76
== END 2019-05-05 09:44 | disposition home or self-care (01) ==
LOC: FSED 08:03
DX: R00.2 Palpitations (principal); I47.1 Supraventricular tachycardia; E87.6 Hypokalemia; K52.9 Noninfective gastroenteritis and colitis, unspecified; I10 Essential (primary) hypertension; R73.9 Hyperglycemia, unspecified; E78.5 Hyperlipidemia, unspecified; Z85.038 Personal history of other malignant neoplasm of large intestine; Z95.5 Presence of coronary angioplasty implant and graft
CPT/HCPCS: 93005; 99284; J7030; J0153